=== PATIENT | female | born 1970 | race Caucasian/White ===

== ENCOUNTER 2018-06-23 10:32 | Outpatient (CLI) | payer OTHER ==
--- NOTE | 2018-06-23 13:40 | CT ---
CT LEFT SHOULDER WITHOUT CONTRAST: HISTORY: S46.002D, injury of left rotator cuff. COMPARISON: None. FINDINGS: BONES: Ribs are unremarkable. Scapula, clavicle, and acromion are all intact as well as the humeral head. MUSCLES: The muscle bulk appears normal. LABRUM: Without intraarticular contrast. ROTATOR CUFF: Limited without intraarticular contrast. Rotator cuff, however, appears to be intact without a full- thickness tear. INTRAPARENCHYMAL LUNG SOFT TISSUES: Intact. IMPRESSION: Normal exam. POS: [facility]
== END 2018-06-23 10:33 | disposition home or self-care (01) ==
LOC: BICCT 10:32
PROVIDERS: ATTEND Nurse Practitioner Family
DX: S46.002D Unspecified injury of muscle(s) and tendon(s) of the rotator cuff of left shoulder, subsequent encounter (principal)

== ENCOUNTER 2021-05-01 07:38 | Inpatient (IN) | payer BC, OTHER ==
[2021-05-01] MEDS ORDERED: Dexamethasone 10 MG/ML VIAL ONE (08:13)
[2021-05-01 08:31] LABS: Hemoglobin 9.3 g/dL (12.0-16.0); Mean Corpuscular HGB CONC 29.6 g/dL (32.0-36.0); Mean Corpuscular Hemoglobin 19.4 pg (27.0-31.0); Mean Corpuscular Volume 65.6 fL (78.0-98.0); Mean Platelet Volume 6.4 fL (7.4-10.4); Platelet Count 255 thou/uL (130-400); RBC Distribution Width 19.2 % (11.5-14.5); White Blood Cell (WBC) Count 5.8 thou/uL (4.8-10.8)
[2021-05-01 08:33] LABS: BHCG - Serum Negative (NEGATIVE); Pregs Control Background? CLEAR/WHITE (CLR/WHITE); Pregs Control Bar Appear? YES (CONTROL BAR)
[2021-05-01 08:47] LABS: ALT (SGPT) 19 U/L (8-55); AST (SGOT) 21 U/L (5-34); Albumin 3.7 g/dL (3.5-5.0); Alkaline Phosphatase 55 U/L (40-110); Anion Gap 14 mmol/L (10-20); BUN (Urea Nitrogen) 6 mg/dL (7.0-18.7); Bilirubin, Total 0.4 mg/dL (0.2-1.2); Calc. Creatinine Clearance 0 mL/min (70-130); Calcium 8.6 mg/dL (7.8-10.44); Carbon Dioxide 27 mmol/L (22-29); Chloride 103 mmol/L (98-107); Globulin 3.3 g/dL (2.4-3.5); Glucose 103 mg/dL (70-105); Potassium 3.1 mmol/L (3.5-5.1); Sodium 141 mmol/L (136-145)
[2021-05-01 08:58] LABS: #Lymphocytes 0.7 thou/uL (1.20-3.40); #Monocytes 0.5 thou/uL (0.11-0.59); #Neutrophils 4.6 thou/uL (1.40-6.50); %Basophils 0.1 % (0.0-1.0); %Eosinophils 0.2 % (0.0-10.0); %Lymphocytes 12.3 % (21.0-51.0); %Monocytes 7.9 % (0.0-10.0); %Neutrophils 79.5 % (42.0-75.0); MDiff Complete? YES
[2021-05-01 08:59] LABS: Anisocytosis SLIGHT = 6-15 cells (100X) (0-5/hpf); Elliptocytes SLIGHT = 2-5 cells (100X) (0-1/hpf); Hypochromia SLIGHT = 6-15 cells (100X) (0-5/hpf); Microcytosis MODERATE=15-30 cells (100X) (0-5/hpf); Platelet Morphology Comment Appears Adequate; Polychromasia SLIGHT = 2-3 cells (100X) (0-2/hpf); Tear Drops SLIGHT = 2-5 cells (100X) (0-1/hpf)
[2021-05-01] MEDS ORDERED: Potassium Chloride 20 MEQ TAB ONE (09:11)
[2021-05-01] MEDS ORDERED: GUAIFENESIN SF SOLN 200 MG/10 ML UDCUP PO PRN (10:18)
[2021-05-01] MEDS ORDERED: Ondansetron PF 4 MG/2 ML Vial IVP PRN (10:19)
[2021-05-01] MEDS ORDERED: Acetaminophen 325 MG TAB PO PRN (10:19)
[2021-05-01] MEDS ORDERED: Ondansetron ODT 4 MG TAB PO PRN (10:19)
[2021-05-01] MEDS ORDERED: Calcium Carbonate 500 MG ChewTAB PO PRN (10:19)
[2021-05-01] MEDS ORDERED: Albuterol 200 PUFF (6.7GM INHALER) INH PRN (10:23)
[2021-05-01] MEDS ORDERED: EPINEPHrine 1 mg/ml MDV (1ml Charge) IM PRN (10:24)
[2021-05-01] MEDS ORDERED: Cepastat Lozenges 1 LOZ PO PRN (10:25)
[2021-05-01 10:56] LABS: Phosphorus 2.2 mg/dL (2.3-4.7)
[2021-05-01] MEDS ORDERED: REMDESIVIR 200 MG in Sodium Chloride 0.9% 250 ML 210 ML IV SCH (11:15)
[2021-05-01] MEDS ORDERED: Aspirin 81 mg Enteric Coated Tablet PO SCH (12:00)
[2021-05-01] MEDS ORDERED: Loratadine 10 MG TAB PO SCH (12:00)
[2021-05-01] MEDS ORDERED: Iopamidol-370 76% 500 ML 1 ML ONE (15:12)
[2021-05-01] MEDS ORDERED: Potassium Chloride 20 MEQ TAB PO SCH (17:00)
[2021-05-01] MEDS: Cholecalciferol 1,000 UNITS (25 MCG) TAB PO SCH (21:52)
[2021-05-01] MEDS: Enoxaparin Sodium 40 MG/0.4 ML SYRINGE SC SCH (21:52)
[2021-05-01] MEDS: Famotidine 20 MG TAB PO SCH (21:53)
[2021-05-01] MEDS: guaiFENesin ER 600 MG TAB PO SCH (21:53)
[2021-05-01] MEDS: Zinc Sulfate 220 MG CAP PO SCH (21:53)
[2021-05-02] MEDS: Albuterol 200 PUFF (6.7GM INHALER) INH SCH ×7 (07:32→23:26)
[2021-05-02] MEDS: K-Phos Neutral 250 MG TAB PO SCH ×3 (07:34→09:33)
[2021-05-02] MEDS: Ascorbic Acid 500 mg Chewable Tablet PO SCH (09:33)
[2021-05-02] MEDS: Aspirin 81 mg Enteric Coated Tablet PO SCH (09:34)
[2021-05-02] MEDS: Loratadine 10 MG TAB PO SCH (09:34)
[2021-05-02] MEDS: guaiFENesin ER 600 MG TAB PO SCH ×2 (09:34→20:45)
[2021-05-02] MEDS: REMDESIVIR 100 MG in Sodium Chloride 0.9% 250 ML 230 ML IV SCH (09:34)
[2021-05-02] MEDS: Multivit, Therapeutic 1 TAB PO SCH (09:34)
[2021-05-02] MEDS: Famotidine 20 MG TAB PO SCH ×2 (09:34→20:44)
[2021-05-02 12:15] LABS: #Lymphocytes 0.9 thou/uL (1.20-3.40); #Monocytes 0.6 thou/uL (0.11-0.59); #Neutrophils 5.2 thou/uL (1.40-6.50); %Basophils 0.6 % (0.0-1.0); %Eosinophils 0.3 % (0.0-10.0); %Lymphocytes 13.3 % (21.0-51.0); %Monocytes 9.1 % (0.0-10.0); %Neutrophils 76.7 % (42.0-75.0); Hemoglobin 9.5 g/dL (12.0-16.0); Mean Corpuscular HGB CONC 29.3 g/dL (32.0-36.0); Mean Corpuscular Hemoglobin 19.3 pg (27.0-31.0); Mean Corpuscular Volume 65.7 fL (78.0-98.0); Mean Platelet Volume 7.3 fL (7.4-10.4); Platelet Count 254 thou/uL (130-400); RBC Distribution Width 19.4 % (11.5-14.5); Red Blood Cell (RBC) Count 4.92 mill/uL (4.20-5.40); White Blood Cell (WBC) Count 6.8 thou/uL (4.8-10.8)
[2021-05-02 12:37] LABS: ALT (SGPT) 17 U/L (8-55); AST (SGOT) 20 U/L (5-34); Albumin 3.5 g/dL (3.5-5.0); Alkaline Phosphatase 51 U/L (40-110); Anion Gap 13 mmol/L (10-20); BUN (Urea Nitrogen) 11 mg/dL (7.0-18.7); Bilirubin, Total 0.4 mg/dL (0.2-1.2); CRP (Inflammatory) 4.54 mg/dL (= or < 0.5); Calc. Creatinine Clearance 0 mL/min (70-130); Calcium 8.3 mg/dL (7.8-10.44); Carbon Dioxide 25 mmol/L (22-29); Chloride 108 mmol/L (98-107); Globulin 2.9 g/dL (2.4-3.5); Glucose 84 mg/dL (70-105); Iron 17 ug/dL (50-170); Iron Binding Capacity, Total 296 mcg/dL (265-497); Potassium 4.3 mmol/L (3.5-5.1); Protein, Total 6.4 g/dL (6.0-8.3); Sodium 142 mmol/L (136-145)
[2021-05-02 12:46] LABS: Phosphorus 3.2 mg/dL (2.3-4.7)
[2021-05-02] MEDS: Dexamethasone 10 MG/ML VIAL SLOW IVP SCH (14:26)
[2021-05-02] MEDS ORDERED: EPINEPHrine 1 MG/ML VIAL IVP PRN (16:44)
[2021-05-02] MEDS ORDERED: EPINEPHrine 1 MG/ML VIAL IJ PRN (17:00)
[2021-05-02] MEDS: Ferrous Sulfate 325 MG TAB PO SCH (18:23)
[2021-05-02] MEDS: Zinc Sulfate 220 MG CAP PO SCH (20:44)
[2021-05-02] MEDS: Cholecalciferol 1,000 UNITS (25 MCG) TAB PO SCH (20:45)
[2021-05-02] MEDS: Enoxaparin Sodium 40 MG/0.4 ML SYRINGE SC SCH (20:45)
[2021-05-03] MEDS: Albuterol 200 PUFF (6.7GM INHALER) INH SCH ×6 (02:13→22:30)
[2021-05-03 07:52] LABS: Hemoglobin 9.7 g/dL (12.0-16.0); Mean Corpuscular HGB CONC 29.2 g/dL (32.0-36.0); Mean Corpuscular Hemoglobin 19.3 pg (27.0-31.0); Mean Corpuscular Volume 66.2 fL (78.0-98.0); RBC Distribution Width 19.5 % (11.5-14.5); Red Blood Cell (RBC) Count 5.01 mill/uL (4.20-5.40); White Blood Cell (WBC) Count 4.9 thou/uL (4.8-10.8)
[2021-05-03 08:05] LABS: ALT (SGPT) 20 U/L (8-55); AST (SGOT) 20 U/L (5-34); Albumin 3.6 g/dL (3.5-5.0); Alkaline Phosphatase 53 U/L (40-110); Anion Gap 14 mmol/L (10-20); BUN (Urea Nitrogen) 12 mg/dL (7.0-18.7); Bilirubin, Total 0.4 mg/dL (0.2-1.2); CRP (Inflammatory) 3.24 mg/dL (= or < 0.5); Calc. Creatinine Clearance 0 mL/min (70-130); Calcium 8.9 mg/dL (7.8-10.44); Carbon Dioxide 26 mmol/L (22-29); Chloride 107 mmol/L (98-107); Globulin 3.1 g/dL (2.4-3.5); Glucose 116 mg/dL (70-105); Potassium 4.5 mmol/L (3.5-5.1); Protein, Total 6.7 g/dL (6.0-8.3); Sodium 142 mmol/L (136-145)
[2021-05-03] MEDS: Dexamethasone 10 MG/ML VIAL SLOW IVP SCH (09:17)
[2021-05-03] MEDS: REMDESIVIR 100 MG in Sodium Chloride 0.9% 250 ML 230 ML IV SCH (09:17)
[2021-05-03] MEDS: Multivit, Therapeutic 1 TAB PO SCH (09:17)
[2021-05-03] MEDS: Ascorbic Acid 500 mg Chewable Tablet PO SCH (09:17)
[2021-05-03] MEDS: Famotidine 20 MG TAB PO SCH ×2 (09:17→21:01)
[2021-05-03] MEDS: Ferrous Sulfate 325 MG TAB PO SCH ×2 (09:19→17:52)
[2021-05-03] MEDS: Loratadine 10 MG TAB PO SCH (09:19)
[2021-05-03] MEDS: Aspirin 81 mg Enteric Coated Tablet PO SCH (09:19)
[2021-05-03] MEDS: guaiFENesin ER 600 MG TAB PO SCH ×2 (09:21→21:01)
[2021-05-03 10:12] LABS: #Lymphocytes 0.7 thou/uL (1.20-3.40); #Monocytes 0.5 thou/uL (0.11-0.59); #Neutrophils 3.7 thou/uL (1.40-6.50); %Basophils 0.8 % (0.0-1.0); %Eosinophils 0.6 % (0.0-10.0); %Lymphocytes 13.8 % (21.0-51.0); %Monocytes 9.2 % (0.0-10.0); %Neutrophils 75.5 % (42.0-75.0); Mean Platelet Volume 6.8 fL (7.4-10.4); Platelet Count 278 thou/uL (130-400)
[2021-05-03 10:13] LABS: Anisocytosis SLIGHT = 6-15 cells (100X) (0-5/hpf); Hypochromia SLIGHT = 6-15 cells (100X) (0-5/hpf); Lymphocytes 16 % (21-51); MDiff Complete? YES; Microcytosis MODERATE=15-30 cells (100X) (0-5/hpf); Monocytes 9 % (0-10); Neutrophil 75 % (42-75); Platelet Morphology Comment Appears Adequate
[2021-05-03 13:10] VITALS: BMI 4393.8
[2021-05-03] MEDS: Enoxaparin Sodium 40 MG/0.4 ML SYRINGE SC SCH (21:01)
[2021-05-03] MEDS: Zinc Sulfate 220 MG CAP PO SCH (21:01)
[2021-05-03] MEDS: Cholecalciferol 1,000 UNITS (25 MCG) TAB PO SCH (21:01)
[2021-05-04] MEDS: Albuterol 200 PUFF (6.7GM INHALER) INH SCH ×6 (02:30→22:30)
[2021-05-04] MEDS: Loratadine 10 MG TAB PO SCH (08:54)
[2021-05-04] MEDS: Aspirin 81 mg Enteric Coated Tablet PO SCH (08:54)
[2021-05-04] MEDS: Dexamethasone 10 MG/ML VIAL SLOW IVP SCH (08:54)
[2021-05-04] MEDS: Ferrous Sulfate 325 MG TAB PO SCH ×2 (08:55→16:13)
[2021-05-04] MEDS: Multivit, Therapeutic 1 TAB PO SCH (08:55)
[2021-05-04] MEDS: Ascorbic Acid 500 mg Chewable Tablet PO SCH (08:55)
[2021-05-04] MEDS: Famotidine 20 MG TAB PO SCH ×2 (08:55→21:27)
[2021-05-04] MEDS: REMDESIVIR 100 MG in Sodium Chloride 0.9% 250 ML 230 ML IV SCH (08:56)
[2021-05-04] MEDS: guaiFENesin ER 600 MG TAB PO SCH ×2 (08:56→21:28)
[2021-05-04] MEDS: Zinc Sulfate 220 MG CAP PO SCH (21:27)
[2021-05-04] MEDS: Cholecalciferol 1,000 UNITS (25 MCG) TAB PO SCH (21:27)
[2021-05-04] MEDS: Enoxaparin Sodium 40 MG/0.4 ML SYRINGE SC SCH (21:27)
[2021-05-05] MEDS: Albuterol 200 PUFF (6.7GM INHALER) INH SCH ×6 (02:30→22:30)
[2021-05-05] MEDS: Aspirin 81 mg Enteric Coated Tablet PO SCH (08:38)
[2021-05-05] MEDS: Multivit, Therapeutic 1 TAB PO SCH (08:38)
[2021-05-05] MEDS: guaiFENesin ER 600 MG TAB PO SCH ×2 (08:38→21:26)
[2021-05-05] MEDS: Ascorbic Acid 500 mg Chewable Tablet PO SCH (08:38)
[2021-05-05] MEDS: Loratadine 10 MG TAB PO SCH (08:38)
[2021-05-05] MEDS: Ferrous Sulfate 325 MG TAB PO SCH ×2 (08:39→17:30)
[2021-05-05] MEDS: Famotidine 20 MG TAB PO SCH ×2 (08:39→21:26)
[2021-05-05] MEDS: REMDESIVIR 100 MG in Sodium Chloride 0.9% 250 ML 230 ML IV SCH (08:39)
[2021-05-05] MEDS: Dexamethasone 10 MG/ML VIAL SLOW IVP SCH (08:39)
[2021-05-05] MEDS: Apixaban 5 MG TAB PO SCH (21:26)
[2021-05-05] MEDS: Cholecalciferol 1,000 UNITS (25 MCG) TAB PO SCH (21:26)
[2021-05-05] MEDS: Zinc Sulfate 220 MG CAP PO SCH (21:26)
[2021-05-06] MEDS: Albuterol 200 PUFF (6.7GM INHALER) INH SCH ×3 (02:35→09:39)
[2021-05-06 05:22] VITALS: TEMP 97.8
[2021-05-06 07:29] VITALS: BP 128/83
[2021-05-06] MEDS: predniSONE 20 MG TAB PO SCH ×2 (09:39→10:17)
[2021-05-06] MEDS: Apixaban 5 MG TAB PO SCH ×2 (09:40→10:13)
[2021-05-06] MEDS: Ascorbic Acid 500 mg Chewable Tablet PO SCH ×2 (09:40→10:17)
[2021-05-06] MEDS: Aspirin 81 mg Enteric Coated Tablet PO SCH ×2 (09:40→10:16)
[2021-05-06] MEDS: Famotidine 20 MG TAB PO SCH ×2 (09:40→10:16)
[2021-05-06] MEDS: Multivit, Therapeutic 1 TAB PO SCH ×2 (09:40→10:16)
[2021-05-06] MEDS: Ferrous Sulfate 325 MG TAB PO SCH ×2 (09:40→10:13)
[2021-05-06] MEDS: Loratadine 10 MG TAB PO SCH ×2 (09:40→10:16)
[2021-05-06] MEDS: guaiFENesin ER 600 MG TAB PO SCH ×2 (09:41→10:16)
== END 2021-05-06 13:55 | disposition home or self-care (01) | DRG 177 ==
LOC: ERS 07:38 → T4-A 10:11
PROVIDERS: ADMIT Internal Medicine; ATTEND Family Medicine
PROC: 8E0ZXY6 Isolation (ICD-10-PCS; principal; 2021-05-01)
PROC: XW033E5 Introduction of Remdesivir Anti-infective into Peripheral Vein, Percutaneous Approach, New Technology Group 5 (ICD-10-PCS; 2021-05-02)
DX: U07.1 COVID-19 (principal); J12.82 Pneumonia due to coronavirus disease 2019; J96.01 Acute respiratory failure with hypoxia; Z96.652 Presence of left artificial knee joint; E87.6 Hypokalemia; N18.2 Chronic kidney disease, stage 2 (mild); D50.9 Iron deficiency anemia, unspecified; Z88.8 Allergy status to other drugs, medicaments and biological substances; Z79.899 Other long term (current) drug therapy
CPT/HCPCS: 36415; 71045; 71275; 80053; 82728; 83540; 83550; 83605; 83735; 84100; 84145; 84484; 84703; 85025; 85379; 85652; 86140; 87040; 94760; 96374; J1100; J1650; J7050; J7512; Q9967

== ENCOUNTER 2021-06-15 07:55 | Outpatient (CLI) | payer BC | END 2021-06-15 07:56 | disposition home or self-care (01) | LOC: RAD 07:55 | PROVIDERS: ATTEND Internal Medicine Critical Care Medicine | DX: R06.00 Dyspnea, unspecified (principal); J98.4 Other disorders of lung | CPT/HCPCS: 71046 ==